=== PATIENT | female | born 1990 | race Asian ===

== ENCOUNTER 2019-03-07 20:13 | Emergency (ER) | payer OTHER ==
--- NOTE | 2019-03-07 20:50 | EDPHY ---
H & P Stated Complaint: INCREASED HEADACHES AFTER GETTING HEAD HIT BY HATCHBACK ON 02/26 Time Seen by Provider: 03/07/19 20:49 HPI/ROS: HPI CHIEF COMPLAINT: Headache. HISTORY OF PRESENT ILLNESS: Patient is a 28-year-old female, otherwise healthy without any significant medical history she presents to the emergency room with a headaches x9 days. Patient reports to me that the back of the car trunk fell on the back of her head. No LOC. Had a mild headache at that time. She noticed over the past 9 days she has had ongoing headache. However the last 48 hr somewhat worse. 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 Gets better when she does not strain or stair at her computer screen. She denies any vomiting, denies any focal numbness or tingling or focal weakness , denies any chest pain or shortness of breath, denies any fever. She has not take any Tylenol or Motrin for her headache. Describes as throbbing posterior. Worse when staring at a computer screen. Past Medical History: Denies significant medical history Past Surgical History: Denies significant surgical history Social History: Denies daily use of drugs alcohol tobacco. Family History: Noncontributory ROS REVIEW OF SYSTEMS: 10 Systems were reviewed and negative with the exception of the elements mentioned in the history of present illness. Exam Constitutional triage nursing summary reviewed, vital signs reviewed, awake/ alert. Eyes normal conjunctivae and sclera, EOMI, PERRLA. Pupils are equal round react to light. HENT normal inspection, atraumatic, moist mucus membranes, no epistaxis, neck supple/ no meningismus, no raccoon eyes. Respiratory clear to auscultation bilaterally, normal breath sounds, no respiratory distress, no wheezing. Cardiovascular rate normal, regular rhythm, no murmur, no edema, distal pulses normal. Gastrointestinal soft, non-tender, no rebound, no guarding, normal bowel sounds, no distension, no pulsatile mass. Genitourinary no CVA tenderness. Musculoskeletal no midline vertebral tenderness, full range of motion, no calf swelling, no tenderness of extremities, no meningismus, good pulses, neurovascularly intact. Skin pink, warm, & dry, no rash, skin atraumatic. Neurologic normal neurological exam, no focal, awake, alert and oriented x 3, AAOx3, moves all 4 extremities equally, motor intact, sensory intact, CN II-XII intact, normal cerebellar, normal vision, normal speech. Psychiatric normal mood/affect. Heme/Lymph/Immune no lymphadenopathy. Differential Diagnosis: But is not limited to in a particular order concussion , closed head injury, intracranial bleed, subdural, traumatic subarachnoid Medical Decision Making: Plan for this patient I did offer her and discussed at length with her about CT imaging risk versus benefit however patient has declined this. She does not want a CT scan of her head. Clinically on exam she has a normal neurological exam. She has no focal neuro deficit. I do recommend she alternate Tylenol Motrin for pain control, brain rest for 3 days. Concussion specialist follow-up. Clinically on exam I do believe she has a concussion/closed head injury. We discussed return precautions. She understands return emergency room she develops worsening headache, vomiting, fever, not doing well. Re-evaluation: Source: Patient - Personal History LMP (Females 10-55): 1-7 Days Ago Current Tetanus/Diphtheria Vaccine: Yes Current Tetanus Diphtheria and Acellular Pertussis (TDAP): Yes - Medical/Surgical History Hx Asthma: No Hx Chronic Respiratory Disease: No Hx Diabetes: No Hx Cardiac Disease: No Hx Renal Disease: No Hx Cirrhosis: No Hx Alcoholism: No Hx HIV/AIDS: No Hx Splenectomy or Spleen Trauma: No Other PMH: MIGRAINES - Social History Smoking Status: Never smoked Constitutional: Initial Vital Signs Temperature (C) 37.0 C 03/07/19 20:21 Heart Rate 97 03/07/19 20:21 Respiratory Rate 18 03/07/19 20:21 Blood Pressure 137/95 H 03/07/19 20:21 O2 Sat (%) 100 03/07/19 20:21 O2 Delivery Mode Room Air Allergies/Adverse Reactions: No Known Allergies Allergy (Unverified 03/07/19 20:24) Home Medications: Medication Instructions Recorded NK [No Known Home Meds] 03/07/19 Medical Decision Making - Data Points Medications Given: Discontinued Medications Acetaminophen (Tylenol) 1,000 mg PO EDNOW ONE Stop: 03/07/19 20:52 Last Admin: 03/07/19 21:03 Dose: 1,000 mg Departure - Departure Disposition: Home, Routine, Self-Care Clinical Impression: Head injury Qualifiers: Encounter type: initial encounter Qualified Code(s): S09.90XA - Unspecified injury of head, initial encounter Concussion Qualifiers: Encounter type: initial encounter Loss of consciousness presence/duration: without LOC Qualified Code(s): S06.0X0A - Concussion without loss of consciousness, initial encounter Condition: Good Instructions: Concussion (ED), Head Injury (ED), Post Concussion Syndrome (ED) Additional Instructions: 1. Rest and stay well-hydrated. 2. I would recommend alternating Tylenol and Motrin every 6-8 hours no aspirin 3. Brain rest for the next 3 days. 4. Return to the emergency room if develops worsening symptoms includes worsening headache, vomiting, not doing well Referrals: Hui Gurrola MD [Primary Care Provider] - As per Instructions Shaunna Shannon MD [Medical Doctor] - As per Instructions Stand Alone Forms: Work Excuse
[2019-03-07] MEDS ORDERED: ACETAMINOPHEN 500 MG TAB PO ONE (20:51)
[2019-03-07 21:32] VITALS: BP 129/77
== END 2019-03-07 21:31 | disposition home or self-care (01) ==
DX: S06.0X0A Concussion without loss of consciousness, initial encounter (principal); W17.89XA Other fall from one level to another, initial encounter; Y92.810 Car as the place of occurrence of the external cause